=== PATIENT | female | born 1970 | race Two or more races ===

== ENCOUNTER 2022-08-19 14:37 | Emergency (ER) | payer SELFPAY ==
[2022-08-19] MEDS ORDERED: Acetaminophen/HYDROcodone 325-5 MG Tab PO ONE (15:01)
== END 2022-08-19 15:34 | disposition home or self-care (01) ==
LOC: MW.ED 14:37
DX: K04.7 Periapical abscess without sinus (principal); I10 Essential (primary) hypertension; E11.9 Type 2 diabetes mellitus without complications
CPT/HCPCS: 99282; A9270